=== PATIENT | male | born 1950 | race Caucasian/White ===

== ENCOUNTER 2016-07-24 08:16 | Day surgery (SDC) | payer MEDICARE ==
[~2016-07-24 08:16] MED LIST: IV START KIT ONE; LACTATED RINGERS 1,000 ML IV SCH; LACTATED RINGERS 1,000 ML ONE
[2016-07-24] MEDS ORDERED: PROPOFOL 40 ML IV ONE (10:36)
--- NOTE | 2016-07-28 15:12 | SURGPATH ---
[facility] [address] [place] [id number] Patient Name: SHAHEEN MONET MR#: [id number] : 1950 Gender: M Specimen #: [id number] Collected: 07/24/2016 Received: 07/27/2016 Reported: 07/28/2016 Submitting Phys: SUREKHA APARICIO Copy To Phys: [facility] Clinical History / Pre-Operative Diagnosis: Screening; history of polyps Specimen Source / Surgical Procedure Performed: #1-sigmoid at 20 cm; #2-hepatic flexure; #3-rectosigmoid junction at 10 cm x2 Interpretation: 1. COLON, SIGMOID, POLYP AT 20 CM, POLYPECTOMY: - HYPERPLASTIC POLYP 2. COLON, HEPATIC FLEXURE, POLYP, POLYPECTOMY: - TUBULAR ADENOMA - REACTIVE LYMPHOID FOLLICLE 3. COLON, RECTOSIGMOID, POLYPS AT 10 CM X2, POLYPECTOMIES: - TWO FRAGMENTS OF HYPERPLASTIC POLYPS Electronically Signed Out Dilcia Zhang M.D. Gross Description: #1 The specimen is received in a formalin filled container labeled with the patient's name and "sigmoid at 20 cm". A single peres biopsy is 0.3 cm. Totally embedded in cassette #1. #2 The specimen is received in a formalin filled container labeled with the patient's name and "hepatic flexure". A single peres biopsy is 0.4 cm. Totally embedded in cassette #2. #3 The specimen is received in a formalin filled container labeled with the patient's name and "rectosigmoid at 10 cm x2". Two peres biopsies are 0.2 and 0.3 cm. Totally embedded in cassette #3. Ivan Cordero Microscopic Description: Part 1: A fragment of hyperplastic polyp is seen without dysplasia or horizontally oriented crypts. Part 2: A single fragment of colonic mucosa is seen with crowded glands lined by hyperchromatic nuclei. No high-grade dysplasia or carcinoma is seen. A second fragment of colonic mucosa shows a reactive lymphoid follicle. Part 3: Two fragments of hyperplastic polyps are seen without dysplasia or horizontally oriented crypts. 1: [id number] 2: [id number] 3: 10356 K63.5 D12.3 K62.1
== END 2016-07-24 11:00 | disposition home or self-care (01) ==
LOC: SDC 08:16
PROVIDERS: ATTEND Internal Medicine Gastroenterology
PROC: 0DBP8ZX Excision of Rectum, Via Natural or Artificial Opening Endoscopic, Diagnostic (ICD-10-PCS; principal; 2016-07-24)
PROC: 0DBN8ZX Excision of Sigmoid Colon, Via Natural or Artificial Opening Endoscopic, Diagnostic (ICD-10-PCS; 2016-07-24)
PROC: 0DBL8ZX Excision of Transverse Colon, Via Natural or Artificial Opening Endoscopic, Diagnostic (ICD-10-PCS; 2016-07-24)
DX: Z12.11 Encounter for screening for malignant neoplasm of colon (principal); D12.3 Benign neoplasm of transverse colon; K63.5 Polyp of colon; K62.1 Rectal polyp; Z86.010 Personal history of colon polyps; I10 Essential (primary) hypertension; F17.210 Nicotine dependence, cigarettes, uncomplicated; G40.909 Epilepsy, unspecified, not intractable, without status epilepticus; B18.2 Chronic viral hepatitis C; I67.9 Cerebrovascular disease, unspecified
CPT/HCPCS: 45385; J7120